=== PATIENT | female | born 2005 | race African-American/Black ===

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

== ENCOUNTER 2024-06-09 14:43 | Emergency (ER) | payer MEDICAID, OTHER ==
[~2024-06-09] VITALS: Ht 157.5 cm; Wt 95.7 kg
[2024-06-09 15:37] LABS: BASOPHILS % (AUTO) 0.1 % (0.0-2.0); EOSINOPHILS % (AUTO) 0.5 % (0.0-6.0); HEMATOCRIT 32 % (33-45); HEMOGLOBIN 10.8 g/dL (11.5-14.8); LYMPHOCYTES # (AUTO) 1.5 K/uL (0.8-4.8); LYMPHOCYTES % (AUTO) 15.4 % (20.0-44.0); MEAN CORPUSCULAR HEMOGLOBIN 26 PG (26.0-33.0); MEAN CORPUSCULAR HGB CONC 33 g/dl (31.0-36.0); MEAN CORPUSCULAR VOLUME 78 fL (82-100); MONOCYTES # (AUTO) 0.5 K/uL (0.1-1.30); NEUTROPHILS # (AUTO) 7.5 K/uL (1.8-8.9); PLATELET COUNT (AUTO) 511 K/uL (150-450); RED BLOOD CELL COUNT(AUTO) 4.16 MIL/uL (4.0-5.2); RED CELL DISTRIBUTION WIDTH 15.8 % (11.5-15.0); WHITE BLOOD COUNT (AUTO) 9.4 K/uL (4.3-11.0)
[2024-06-09] MEDS ORDERED: PANTOPRAZOLE 40 MG VIAL ONE (15:46)
[2024-06-09] MEDS ORDERED: ONDANSETRON HCL/PF 4 MG/2 ML VIAL ONE (15:46)
[2024-06-09] MEDS ORDERED: SUCRALFATE 1 G/10 ML UDC ONE ×2 (15:46→17:31)
[2024-06-09] MEDS ORDERED: FAMOTIDINE/PF INJ 20 MG/2 ML VIAL IV ONE (15:47)
[2024-06-09 15:49] LABS: URIC ACID 4.5 mg/dL (2.6-7.2)
[2024-06-09 15:51] LABS: ALBUMIN 2.7 g/dL (3.4-5.0); BILIRUBIN,DIRECT 0.1 mg/dL (0.0-0.2); BILIRUBIN,TOTAL 0.3 mg/dL (0.2-1.0); CREATININE 0.5 mg/dL (0.6-1.3); TOTAL PROTEIN, SERUM 7.7 g/dL (6.4-8.2)
[2024-06-09] MEDS: FAMOTIDINE/PF INJ 20 MG/2 ML VIAL IV ONE (15:54)
[2024-06-09] MEDS: PANTOPRAZOLE 40 MG VIAL IV ONE (15:54)
[2024-06-09] MEDS: SUCRALFATE 1 G TABLET PO ONE (15:54)
[2024-06-09] MEDS: IV NS 0.9% 1,000 ML BAG IV ONE (15:54)
[2024-06-09] MEDS: ONDANSETRON HCL/PF 4 MG/2 ML VIAL IVP ONE (15:54)
[2024-06-09 16:41] LABS: CALCIUM, SERUM 9.3 mg/dL (8.5-10.1)
[2024-06-09 16:44] LABS: APPEARANCE,URINE CLEAR (CLEAR); BILIRUBIN,URINE NEGATIVE (NEGATIVE); BLOOD, URINE NEGATIVE Ery/uL (NEGATIVE); COLOR,URINE YELLOW (YELLOW); KETONES,URINE 3+ mg/dL (NEGATIVE); LEUKOCYTE ESTERASE ,URINE 3+ (NEGATIVE); NITRITE, URINE NEGATIVE (NEGATIVE); PH,URINE 7.5 (5.0-8.0); PROTEIN,URINE TRACE mg/dl (NEGATIVE); UGLUCOSE NEGATIVE (NEGATIVE)
[2024-06-09 16:56] LABS: ADD URINE CULTURE YES; TRICHOMONAS,URINE None Seen /HPF (None Seen); YEAST,URINE None Seen /HPF (None Seen)
[2024-06-09 16:57] LABS: BACTERIA,URINE Rare /HPF (None Seen)
[2024-06-09] MEDS ORDERED: METOCLOPRAMIDE HCL 10 MG/2 ML VIAL ONE (17:31)
[2024-06-09] MEDS ORDERED: ACETAMINOPHEN ES 500 MG TABLET ONE (17:31)
[2024-06-09] MEDS: METOCLOPRAMIDE HCL 10 MG/2 ML VIAL IV ONE (17:35)
[2024-06-09] MEDS: ACETAMINOPHEN ES 500 MG TABLET PO ONE (17:35)
[2024-06-09] MEDS: SUCRALFATE 1 G/10 ML UDC PO ONE (17:35)
[2024-06-09] MEDS ORDERED: CEPHALEXIN MONOHYDRATE 500 MG CAPSULE PO ONE (17:41)
[2024-06-09] MEDS ORDERED: MORPHINE SULFATE INJ 2 MG/ML DISP.SYRIN ONE (17:42)
[2024-06-09] MEDS: MORPHINE SULFATE INJ 2 MG/ML DISP.SYRIN IV ONE (17:46)
[2024-06-09] MEDS: CEPHALEXIN MONOHYDRATE 500 MG CAPSULE PO ONE (17:46)
[2024-06-09] MEDS ORDERED: Magnesium 1GM/D5W 100ML PREMIX 200 ML IV ONE (17:56)
[2024-06-09] MEDS: Magnesium 1 GM/2 ML VIAL IV ONE (18:00)
[2024-06-09] MEDS ORDERED: Magnesium 1 GM/2 ML VIAL ONE (18:01)
[2024-06-09] MEDS ORDERED: SUCR1TAB31 PO (19:10)
[2024-06-09] MEDS ORDERED: PANT40TA49 PO (19:10)
[2024-06-09] MEDS ORDERED: CEPH-570 PO (19:10)
[2024-06-09] MEDS ORDERED: FAMO20TA80 PO (19:10)
[2024-06-09 19:42] VITALS: BP 135/81; TEMP 98; O2SAT 99
== END 2024-06-09 19:43 | disposition home or self-care (01) ==
LOC: ER 15:11
DX: O26.893 Other specified pregnancy related conditions, third trimester (principal); K29.70 Gastritis, unspecified, without bleeding; N39.0 Urinary tract infection, site not specified; Z3A.32 32 weeks gestation of pregnancy
CPT/HCPCS: 99291; 96374; 96375; 96361; 85025; 80048; 87086; 83615; 83690; 80076; 83735; 84550; 81001; 36415; J3490; J2765; J2405; J7030; J7050; J2470; A4223; J3475; J2270